=== PATIENT | female | born 1960 | race Caucasian/White ===

== ENCOUNTER 2025-07-15 11:57 | Inpatient (IN) ==
--- NOTE | 2025-07-15 12:59 | XRay Report ---
XR chest 1V portable CLINICAL HISTORY: Dyspnea. COMPARISON STUDY: No previous studies for comparison. FINDINGS: Lung volumes are normal. Lungs are clear. There is no pneumothorax or pleural effusion. Car diac size is normal. Mediastinal contours are normal. There is no evidence for pulmonary edema. IMPRESSION: No acute cardiopulmonary findings. ACT 112: Negative or not required by law. Electronically signed by: Toribio Noel M.D. 07/15/2025 12:58 PM
[2025-07-15 13:00] LABS: Hematocrit (blood only) 30.0 % (37.0-47.0); Hemoglobin 9.9 g/dL (12.0-16.0); Immature Granulocytes # (auto) 0.01 K/uL (0.01-0.20); Immature Granulocytes % (auto) 0.2 %; Mean Corpuscular Hemoglobin 29.5 pg (25.0-34.0); Mean Corpuscular Volume 89.3 fL (80.0-100.0); Platelet Count 267 K/uL (130-400); RDW Standard Deviation 44.2 fL (36.4-46.3); Red Blood Count 3.36 M/uL (4.20-5.40); White Blood Count 4.88 K/ul (4.8-10.8)
[2025-07-15 13:24] LABS: Alanine Aminotransferase 18 U/L (7-52); Albumin Globulin Ratio 1.7 (0.9-2); Albumin Level 3.9 gm/dl (3.4-5.0); Alkaline Phosphatase 45 U/L (34-104); Anion Gap 5 (3-11); Bilirubin,Total 0.3 mg/dl (0.2-1.0); Blood Urea Nitrogen 13 mg/dl (6-23); Calcium 8.8 mg/dl (8.6-10.3); Carbon Dioxide 27 mmol/L (21-32); Chloride 107 mmol/L (98-107); Creatinine Clr Calc Pharmacy 62.3 ml/min; Globulin 2.3 gm/dl (2.5-4.0); Glucose 97 mg/dl (70-99(Fasting)); Potassium 3.8 mmol/L (3.5-5.1); Sodium 139 mmol/L (136-145); Total Protein 6.2 gm/dl (6.0-8.3)
--- NOTE | 2025-07-15 13:25 | Electrocardiogram Report ---
Test Reason : Blood Pressure : */* mmHG Vent. Rate : 77 BPM Atrial Rate : 77 BPM P-R Int : 168 ms QRS Dur : 72 ms QT Int : 390 ms P-R-T Axes : 28 13 10 degrees QTcB Int : 441 ms Normal sinus rhythm Normal ECG Confirmed by Luis Aponte ([id number]) on 07/15/2025 1:24:58 PM Referred By: Confirmed By: Luis Aponte
[2025-07-15 13:59] LABS: Chlamydia pneumoniae PCR Not Detected (NotDetected); Coronavirus 229E PCR Not Detected (NotDetected); Coronavirus CoV-2 (COVID19)PCR Not Detected (NotDetected); Coronavirus HKU1 PCR Not Detected (NotDetected); Coronavirus NL63 PCR Not Detected (NotDetected); Coronavirus OC43PCR Not Detected (NotDetected); Human Metapneumovirus PCR Not Detected (NotDetected); Parainfluenza Virus 1 PCR Not Detected (NotDetected); Parainfluenza Virus 2 PCR Not Detected (NotDetected); Parainfluenza Virus 3 PCR Not Detected (NotDetected); Parainfluenza Virus 4 PCR Not Detected (NotDetected); Respiratory Syncytial VirusPCR Not Detected (NotDetected); Rhinovirus/Enterovirus PCR Not Detected (NotDetected)
[2025-07-15] MEDS ORDERED: PANTOPRAZOLE BOLUS/DRIP IV STA (14:52)
--- NOTE | 2025-07-15 14:53 | Gastrointestinal Consultation ---
Date of Consultation July 15, 2025 Assessment & Plan (1) Hx of gastric bypass: 65 year old female with history of HTN, osteoporosis, RYGB, anastomotic ulcer in 2020 in the setting of NSAIDs use admitted through the ED w/ symptomatic anemia, black stools in the setting of recent Excedrin use Trend H&H Monitor and document GI output Transfuse PRN per primary team IV PPI bolus and drip NPO after midnight Plan for EGD 07/16/25 We appreciate assistance in the management of any serological abnormality and corrections to include: hemoglobin >7, INR <2, platelets >50,000, potassium levels >3.5 but <5.3, and sodium levels within 5 points of the reference range prior to endoscopic evaluation. Thank you for allowing us to participate in the care of this patient. Please call with any acute changes, questions or concerns. Please see addendum below with additional recommendation from my supervising ph ysician. I spent a total of [] minutes on the date of service in review of patient's record, and previously obtained information in person and appropriate medical visit, discussion and education of plan, with patient and/or caregiver, placing orders for tests/referral/procedures as medically necessary and documentation of pertinent clinical information in patient's medical records for their visit today. Supervising Physician Co-Signing Physician Notes I saw and examined this patient with our nurse practitioner and agree with her assessment and plan. Patient presents with clinical picture of upper GI bleed. Differential diagnosis includes anastomotic ulcer, NSAID induced ulcer less likely neoplasm, esophagitis or vascular ectasias. Hemodynamically stable. Continue IV PPI drip. Will proceed with endoscopy in AM. History of Present Illness Reason for Consultation: anemia, black stool Requesting Physician: Dr. Doran Attending Physician: Dr. Doran History of Present Illness 65 year old female with history of HTN, osteoporosis, RYGB, anastomotic ulcer in 2020 in the setting of NSAIDs use admitted though the ED w/ anemia, black stools. GI was asked to evaluate. Suggests had been using some Excedrin for MSK discomfort for about a week. Shortly into this course, reports she developed some dark stools. No BRBPR. Has had some nausea but no vomiting. She grew concerned as she felt weak, dizzy and had SOB. HGB 13 --> 10.2 --> 9.9 BUN 13 EGD 2019: Normal esophagus. - Z-line regular, 33 cm from the incisors. - Gastric bypass with a small-sized pouch and intact staple line. Gastrojejunal anastomosis characterized by several clean based ulcerations. - Biopsies obtained from the gastric pouch to screen for H pylori. Allergies Allergy/AdvReac Type Severity Reaction Status Date / Time Sulfa (Sulfonamide Allergy Unknown . Verified 03/04/25 14:22 Antibiotics) Home Medications Medication Instructions Recorded Confirmed Type citalopram 20 mg tablet 30 mg PO DAILY #0 tabs 05/24/16 07/15/25 History lisinopril 5 mg tablet 5 mg PO DAILY #0 tabs 05/24/16 07/15/25 History fluticasone propionate 50 1 spray intranasal DAILY 07/15/25 07/15/25 History mcg/actuation nasal spray,suspension Patient History Medical History Depression Hypertension Surgical History History of gynecologic surgery Fertility Family History Grandmother Rheumatoid arthritis Social History Smoking Status: Never smoker Hx Alcohol Use: No Preferred Language: Algerian Feels Safe at Home: Yes Review of Systems Review of Systems: All other findings negative except as noted in HPI. Physical Exam Constitutional: WD/WN, vitals as above Respiratory: normal respiratory effort, lungs clear to auscultation Cardiovascular: Rate/Rhythm: regular rate Gastrointestinal (Abdomen): normal bowel sounds, soft, nontender, no hepatosplenomegaly Skin: no rashes, warm and dry Results & Data Vital Signs (Past 12 Hours) Vital Signs Temp Pulse Pulse Resp BP BP Pulse Ox 07/15/25 13:30 71 20 133/85 98 07/15/25 12:30 96 07/15/25 12:28 80 07/15/25 12:25 76 18 141/107 H 94 07/15/25 12:24 94 07/15/25 12:01 98.1 F 84 22 136/85 99 O2 Del Method 07/15/25 13:30 Room Air 07/15/25 12:30 Room Air 07/15/25 12:28 07/15/25 12:25 Room Air 07/15/25 12:24 Room Air 07/15/25 12:01 Room Air Laboratory Results 07/15/25 07/15/25 Range/Units 12:44 12:21 WBC 4.88 (4.8-10.8) K/ul RBC 3.36 L (4.20-5.40) M/uL Hgb 9.9 L (12.0-16.0) g/dL Hct 30.0 L (37.0-47.0) % MCV 89.3 (80.0-100.0) fL MCH 29.5 (25.0-34.0) pg MCHC 33.0 (32.0-36.0) g/dL RDW Std Deviation 44.2 (36.4-46.3) fL RDW Coeff of Anais 13.8 (11.5-14.5) % Plt Count 267 (130-400) K/uL MPV 10.4 (9.4-12.4) fL Immature Gran % (Auto) 0.2 % Neut % (Auto) 53.9 % Lymph % (Auto) 37.5 % [place] % (Auto) 6.6 % Eos % (Auto) 0.8 % Baso % (Auto) 1.0 % Neut # (Auto) 2.63 (1.40-6.50) K/uL Lymph # (Auto) 1.83 (1.20-3.40) K/uL [place] # (Auto) 0.32 (0.11-0.59) K/uL Eos # (Auto) 0.04 (0.00-0.50) K/uL Baso # (Auto) 0.05 (0.00-0.20) K/uL Immature Gran # (Auto) 0.01 (0.01-0.20) K/uL D-Dimer < 190 (0-500) ug/L FEU Sodium 139 (136-145) mmol/L Potassium 3.8 (3.5-5.1) mmol/L Chloride 107 (98-107) mmol/L Carbon Dioxide 27 (21-32) mmol/L Anion Gap 5 (3-11) BUN 13 (6-23) mg/dl Creatinine 0.85 (0.6-1.2) mg/dl Est Cr Clr Drug Dosing 62.3 ml/min eGFR 76.93 BUN/Creatinine Ratio 15.3 (10-20) Glucose 97 (70-99(Fasting)) mg/dl Calcium 8.8 (8.6-10.3) mg/dl Total Bilirubin 0.3 (0.2-1.0) mg/dl AST 18 (13-39) U/L ALT 18 (7-52) U/L Alkaline Phosphatase 45 (34-104) U/L Troponin I High Sens < 2.3 (0-14) pg/ml B-Natriuretic Peptide 33 (0-100) pg/ml Total Protein 6.2 (6.0-8.3) gm/dl Albumin 3.9 (3.4-5.0) gm/dl Globulin 2.3 L (2.5-4.0) gm/dl Albumin/Globulin Ratio 1.7 (0.9-2) Adenovirus (PCR) Not Detected (NotDetected) B. pertussis DNA (PCR) Not Detected (NotDetected) B.parapertussis DNA PCR Not Detected (NotDetected) C. pneumoniae DNA (PCR) Not Detected (NotDetected) Coronavirus OC43 (PCR) Not Detected (NotDetected) Coronavirus HKU1 (PCR) Not Detected (NotDetected) Coronavirus 229E (PCR) Not Detected (NotDetected) SARS-CoV-2 (PCR) Not Detected (NotDetected) Coronavirus NL63 (PCR) Not Detected (NotDetected) Human Metapneumovir PCR Not Detected (NotDetected) Influenza Type A (PCR) Not Detected (NotDetected) Influenza Type B (PCR) Not Detected (NotDetected) M. pneumoniae (PCR) Not Detected (NotDetected) Parainfluenza 1 (PCR) Not Detected (NotDetected) Parainfluenza 2 (PCR) Not Detected (NotDetected) Parainfluenza 3 (PCR) Not Detected (NotDetected) Parainfluenza 4 (PCR) Not Detected (NotDetected) RSV (PCR) Not Detected (NotDetected) Entero/Rhino (PCR) Not Detected (NotDetected) PG Care Time/CCT Total # of Minutes Spent Total Time Spent with Patient: Total time spent is greater than 50% in coordination of care (as documented) at patient's floor/unit and/or counseling patient: Coding Level of Care Code 75867 IN/OBS CONSULT LVL 4,60M Diagnoses Hx of gastric bypass Z98.84
--- NOTE | 2025-07-15 15:10 | History & Physical Report ---
Date of Service July 15, 2025 Assessment & Plan (1) Upper GI bleed: (2) Acute blood loss anemia: (3) Palpitations: (4) Chest pressure: (5) PVC (premature ventricular contraction): Plan Patient is a 65-year-old female with past medical history significant for arctic rhinitis, HTN, history of gastric bypass with gastrojejunal anastomosis ulcerations seen on prior EGD and osteoporosis who presented to the ED with c/o black stools and anemia in the setting of recent Excedrin use. Acute upper GI bleed Acute blood loss anemia Hgb previously WNL as of May 2022 Hgb 9.9 on admission H/o gastric bypass surgery several years ago EGD, 10/2019: normal esophagus, gastric bypass with a small sized pouch and intact staple line, gastrojejunal anastomosis characterized by several clean- based ulcerations EGD biopsy of the gastric pouch with no significant histopathologic features P/w black stools x 5 days; also w/ lightheadedness/dizziness and SANTANA which are likely 2/2 symptomatic anemia CXR negative Started on IV PPI bolus/drip in ED, continue GI saw pt in ED >> plan for EGG tomorrow Maintain NPO status, MIVF No indication to transfuse at this time but will follow repeat H/H Type/cross for 2U, blood consent obtained just in case Palpitations Chest pressure Symptomatic PVCs Also with c/o palpitations and centralized chest pressure x 5 days No reported specific chest pain in particular EKG in ED reveals NSR Electrolytes WNL, will check mag Tele in ED with frequent PVCs, likely experiencing symptomatic PVCs Will start Lopressor 12.5mg BID IVF initiated, will give some po K as well for goal K>4 Trop x 1 negative Check TTE Continue tele monitoring Repeat EKG in AM EKG with chest pain PRN Continue to monitor electrolytes and replete PRN Anxiety/depression Continue Celexa HTN Hold lisinopril for now given initiation of Lopressor BP on softer side DVT Prophylaxis: SCDs/TEDs only ISO above Code Status: FULL CODE PCP: Shawanda Shrestha MD Disposition: Admit to med/telemetry Patient seen in collaboration with Dr. Dominguez. Please see addendum. I spent a total of 64 minutes coordinating, documenting, and providing care for this patient excluding time spent in the performance of separately billed services or time spent by another provider/QHP. This included personally reviewing all current laboratories and imaging studies, medical reconciliation, outpatient chart review and discussion with specialists. This chart was completed in part utilizing Speech Voice Recognition Software. Grammatical errors, random word insertions, pronoun errors, and incomplete sentences are an occasional consequence of this system due to software limitations, ambient noise, and hardware issues. Any formal questions or concerns about the content, text, or information contained within the body of this dictation should be directly addressed to the provider for clarification. History of Present Illness Chief Complaint: Black stools, anemia Primary Care Provider: Shawanda Shrestha MD Patient is a 65-year-old female with past medical history significant for arctic rhinitis, HTN, history of gastric bypass and osteoporosis who presented to the ED with c/o black stools and anemia. History obtained from the patient, patient's significant other at bedside, discussion with ED provider and associated chart review. Patient seen with Dr. Dominguez in the ED. Reports dark black stools for the past 5 days. No reported hematochezia. Admits to taking Excedrin Migraine around for about 3 days due to MSK pain related to underlying osteoporosis. Has a history of gastric bypass with known ulcerations seen on prior EGD done in 2019. Reports history of bleeding ulcerations however denies any prior need for blood transfusions. Was on PPI therapy in the past but not as of recently. Has been also experiencing dyspnea on exertion, lightheadedness/dizziness, nausea, heart palpitations and centralized chest pressure. No reported falls or trauma. No known significant cardiac history. Denies any urinary habit changes. No reported diarrhea. Denies any abdominal pain. Was seen by PCP for these complaints on 07/13/25 and was ordered a PPI, CBC. CBC revealed anemia with Hgb of 10.2, Hgb previously WNL as of May 2022. Was subsequently referred to ED today by PCP due to concern for upper GI bleeding. FOBT positive in ED, Hgb 9.9; started on IV Protonix bolus/drip. GI saw and evaluated the patient in the ED, planning for EGD tomorrow AM. Allergies Allergy/AdvReac Type Severity Reaction Status Date / Time Sulfa (Sulfonamide Allergy Unknown . Verified 03/04/25 14:22 Antibiotics) Home Medications Medication Instructions Recorded Confirmed Type citalopram 20 mg tablet 30 mg PO DAILY #0 tabs 05/24/16 07/15/25 History lisinopril 5 mg tablet 5 mg PO DAILY #0 tabs 05/24/16 07/15/25 History fluticasone propionate 50 1 spray intranasal DAILY 07/15/25 07/15/25 History mcg/actuation nasal spray,suspension Past Med/Surg History Problem List Chest pressure Palpitations PVC (premature ventricular contraction) (Acute) Acute blood loss anemia Upper GI bleed (Acute) Vitamin D deficiency Vitamin B12 deficiency Hyperparathyroidism Osteoporosis Hx of gastric bypass Medical History Depression Hypertension Surgical History History of gynecologic surgery Fertility Family History Grandmother Rheumatoid arthritis Social History Smoking Status: Never smoker Hx Alcohol Use: No Preferred Language: Austrian Feels Safe at Home: Yes Review of Systems Review of Systems: At least ten systems reviewed and negative, except as noted in the HPI. Physical Exam 2 Physical Exam: Please refer to Dr. Dominguez's addendum for physical examination findings. Results & Data Results & Data Vital Signs (Past 12 Hours) Vital Signs Temp Pulse Pulse Resp BP BP Pulse Ox 07/15/25 13:30 71 20 133/85 98 07/15/25 12:30 96 07/15/25 12:28 80 07/15/25 12:25 76 18 141/107 H 94 07/15/25 12:24 94 07/15/25 12:01 36.7 C 84 22 136/85 99 O2 Del Method 07/15/25 13:30 Room Air 07/15/25 12:30 Room Air 07/15/25 12:28 07/15/25 12:25 Room Air 07/15/25 12:24 Room Air 07/15/25 12:01 Room Air Laboratory Results Short CBC 07/15/25 Range/Units 12:21 WBC 4.88 (4.8-10.8) K/ul Hgb 9.9 L (12.0-16.0) g/dL Hct 30.0 L (37.0-47.0) % Plt Count 267 (130-400) K/uL BMP 07/15/25 12:21 Sodium 139 Potassium 3.8 Chloride 107 Carbon Dioxide 27 BUN 13 Creatinine 0.85 Glucose 97 Calcium 8.8 Liver Function 07/15/25 Range/Units 12:21 Total Bilirubin 0.3 (0.2-1.0) mg/dl AST 18 (13-39) U/L ALT 18 (7-52) U/L Alkaline Phosphatase 45 (34-104) U/L Albumin 3.9 (3.4-5.0) gm/dl Diagnostic Findings Chest X-Ray 07/15/25 12:30 XR chest 1V portable CLINICAL HISTORY: Dyspnea. COMPARISON STUDY: No previous studies for comparison. FINDINGS: Lung volumes are normal. Lungs are clear. There is no pneumothorax or pleural effusion. Cardiac size is normal. Mediastinal contours are normal. There is no evidence for pulmonary edema. IMPRESSION: No acute cardiopulmonary findings. ACT 112: Negative or not required by law. Electronically signed by: Toribio Noel M.D. 07/15/2025 12:58 PM Supervising Physician Co-Signing Physician Notes Patient is a 65-year-old female with history of gastric bypass surgery, peptic ulcer disease, mood disorder, hypertension and other medical problems presents with history of melena, dizziness, dyspnea on exertion and palpitations since 5 days duration. Patient admits to using Excedrin for musculoskeletal pain during times coming for 3 days duration. Please review HPI for complete details of presentation. His fecal occult is positive in ED. PVCs noted on monitor. I personally reviewed blood work, EKG and imaging studies. D-dimer negative. Chest x-ray within normal limits. EKG showed no no signs of acute ischemia. Physical Exam: Vitals signs as noted above General Appearance:Moderately built and nourished, no apparent distress Head: normocephalic, Atraumatic Eyes: normal inspection, EOMI Neck: supple, Trachea midline Respiratory/Chest: Normal breath sounds, CTA, No accessory muscle use Cardiovascular: S1, S2, No murmur Abdomen/GI:Soft, Non tender, Bowel sounds present Extremities/Musculoskeletal:normal inspection, no edema Neurologic/Psych:AAOX3, grossly no focal neurological deficits Skin: normal color, warm Melena Acute blood loss anemia Symptomatic PVCs Continue IV Protonix Monitor H&H and transfuse as needed Gastroenterology on board Started on metoprolol for PVCs Check resting echo May need ZIO monitor as outpatient Monitor and replete electrolytes as needed Gentle IV fluids I personally interviewed and examined the patient at bedside. I have reviewed the advanced practitioner's documentation on the date of service referred in note and agree with plan. Patient's care is coordinated with Isabela Harris PA-C. Please refer to the documentation above for details of patient's presentation and for discussion of other issues. I spent a total [id number] coordinating, documenting, and providing care for this patient excluding time spent in the performance of separately billed services or time spent by another provider/QHP.
[2025-07-15] MEDS ORDERED: SODIUM CHLORIDE 0.9% 100 ML IV PRN (15:17)
--- NOTE | 2025-07-15 15:43 | Emergency Department Note ---
History of Present Illness General Chief complaint: Shortness of Breath/Dyspnea Stated complaint: IRREGULAR HEART BEAT CHEST PRESSURE SOB DIZZY Time Seen by Provider: 07/15/25 12:11 Source: patient Mode of arrival: ambulatory Limitations: no limitations History of Present Illness Patient is a 65-year-old female with history of peptic ulcer disease, vitamin D deficiency, vitamin B12 deficiency, hyperparathyroidism, prior gastric bypass who presents for shortness of breath, lightheadedness and palpitations. Symptoms have been present for several days. Palpitations were more frequent last night. Described as skipped heartbeats. No similar symptoms in the past. Denies any chest pain related to symptoms. No new medications. Denies alcohol or drug use. She also reports several days of dark stools. Not currently on any anticoagulation. No abdominal pain, nausea, vomiting. Home Medications Medication Instructions Recorded Confirmed Type citalopram 20 mg tablet 30 mg PO DAILY #0 tabs 05/24/16 03/04/25 History lisinopril 5 mg tablet 5 mg PO DAILY #0 tabs 05/24/16 03/04/25 History cholecalciferol (vitamin D3) 125 125 mcg PO DAILY 09/03/24 03/04/25 History mcg (5,000 unit) tablet syringe with needle 3 mL 23 x 1" #50 ea 09/03/24 12/07/24 Rx (BD Eclipse Luer-Kady) mecobalamin (vitamin B12) 5,000 5,000 mcg PO DAILY 12/07/24 12/24/24 History mcg disintegrating tablet melatonin 5 mg capsule 5 mg PO HS PRN as directed 12/07/24 03/04/25 History fluticasone propionate 50 1 spray intranasal UD 07/15/25 History mcg/actuation nasal spray,suspension omeprazole 40 mg capsule,delayed 40 mg PO DAILY 07/15/25 History release Allergies Allergy/AdvReac Type Severity Reaction Status Date / Time Sulfa (Sulfonamide Allergy Unknown . Verified 03/04/25 14:22 Antibiotics) Past Med/Surg History Problem List PVC (premature ventricular contraction) (Acute) Acute blood loss anemia Upper GI bleed (Acute) Vitamin D deficiency Vitamin B12 deficiency Hyperparathyroidism Osteoporosis Hx of gastric bypass Medical History Depression Hypertension Surgical History History of gynecologic surgery Fertility Family History Grandmother Rheumatoid arthritis Social History Smoking Status: Never smoker Hx Alcohol Use: No Preferred Language: Ukrainian Feels Safe at Home: Yes Review of Systems Review of systems negative outside of positive findings mentioned in HPI. Physical Exam Vital Signs Vital Signs - 24 hr 07/15/25 12:01 07/15/25 12:24 07/15/25 12:24 Temperature 36.7 C Temperature Source Temporal Artery Scan Pulse Rate 84 Pulse Rate [Apical] Respiratory Rate 22 Respiratory Effort / Characteristics Non-Labored Respiratory Depth Normal Normal Respiratory Pattern Regular Blood Pressure 136/85 Blood Pressure [Left Arm] Blood Pressure Mean 102 Blood Pressure Mean [Left Arm] Pulse Oximetry 99 94 Oxygen Delivery Method Room Air Room Air Sepsis Recent Fever Within 48 Hours No Sepsis New/Unexplained Change in Mental Status No Sepsis Action Taken by Nursing No Action Required 07/15/25 12:25 07/15/25 12:28 07/15/25 12:30 Temperature Temperature Source Pulse Rate 80 Pulse Rate [Apical] 76 Respiratory Rate 18 Respiratory Effort / Characteristics Non-Labored Spontaneous Respiratory Depth Normal Respiratory Pattern Blood Pressure Blood Pressure [Left Arm] 141/107 H Blood Pressure Mean Blood Pressure Mean [Left Arm] 118 Pulse Oximetry 94 96 Oxygen Delivery Method Room Air Room Air Sepsis Recent Fever Within 48 Hours Sepsis New/Unexplained Change in Mental Status Sepsis Action Taken by Nursing 07/15/25 13:30 Temperature Temperature Source Pulse Rate Pulse Rate [Apical] 71 Respiratory Rate 20 Respiratory Effort / Characteristics Non-Labored Spontaneous Respiratory Depth Normal Respiratory Pattern Regular Blood Pressure Blood Pressure [Left Arm] 133/85 Blood Pressure Mean Blood Pressure Mean [Left Arm] 101 Pulse Oximetry 98 Oxygen Delivery Method Room Air Sepsis Recent Fever Within 48 Hours Sepsis New/Unexplained Change in Mental Status Sepsis Action Taken by Nursing See below Constitutional WD/WN, vitals as above Eyes PERRL, conjunctivae normal, anicteric sclerae Respiratory normal respiratory effort, lungs clear to auscultation Cardiovascular RRR, no murmur, no edema Intermittent PVCs noted Gastrointestinal (Abdomen) normal bowel sounds, soft, nontender, no hepatosplenomegaly Rectal Exam: + heme positive stool Medical Decision Making Differential Diagnosis DDx includes but not limited to: Cardiac arrhythmia, structural heart disease, anemia, hypovolemia and dehydration, hyperthyroidism, anxiety, and stimulant reaction, PE, GERD Medical Records Attestation: I reviewed the patient's medical records. Home Medications Current Medication List: was personally reviewed by me Laboratory Data Attestation: I reviewed the patient's lab results. 07/15/25 12:21 07/15/25 12:21 Lab Results 07/15/25 07/15/25 Range/Units 12:21 12:44 WBC 4.88 (4.8-10.8) K/ul RBC 3.36 L (4.20-5.40) M/uL Hgb 9.9 L (12.0-16.0) g/dL Hct 30.0 L (37.0-47.0) % MCV 89.3 (80.0-100.0) fL MCH 29.5 (25.0-34.0) pg MCHC 33.0 (32.0-36.0) g/dL RDW Std Deviation 44.2 (36.4-46.3) fL RDW Coeff of Anais 13.8 (11.5-14.5) % Plt Count 267 (130-400) K/uL MPV 10.4 (9.4-12.4) fL Immature Gran % (Auto) 0.2 % Neut % (Auto) 53.9 % Lymph % (Auto) 37.5 % [place] % (Auto) 6.6 % Eos % (Auto) 0.8 % Baso % (Auto) 1.0 % Neut # (Auto) 2.63 (1.40-6.50) K/uL Lymph # (Auto) 1.83 (1.20-3.40) K/uL [place] # (Auto) 0.32 (0.11-0.59) K/uL Eos # (Auto) 0.04 (0.00-0.50) K/uL Baso # (Auto) 0.05 (0.00-0.20) K/uL Immature Gran # (Auto) 0.01 (0.01-0.20) K/uL D-Dimer < 190 (0-500) ug/L FEU Sodium 139 (136-145) mmol/L Potassium 3.8 (3.5-5.1) mmol/L Chloride 107 (98-107) mmol/L Carbon Dioxide 27 (21-32) mmol/L Anion Gap 5 (3-11) BUN 13 (6-23) mg/dl Creatinine 0.85 (0.6-1.2) mg/dl Est Cr Clr Drug Dosing 62.3 ml/min eGFR 76.93 BUN/Creatinine Ratio 15.3 (10-20) Glucose 97 (70-99(Fasting)) mg/dl Calcium 8.8 (8.6-10.3) mg/dl Total Bilirubin 0.3 (0.2-1.0) mg/dl AST 18 (13-39) U/L ALT 18 (7-52) U/L Alkaline Phosphatase 45 (34-104) U/L Troponin I High Sens < 2.3 (0-14) pg/ml B-Natriuretic Peptide 33 (0-100) pg/ml Total Protein 6.2 (6.0-8.3) gm/dl Albumin 3.9 (3.4-5.0) gm/dl Globulin 2.3 L (2.5-4.0) gm/dl Albumin/Globulin Ratio 1.7 (0.9-2) Adenovirus (PCR) Not Detected (NotDetected) B. pertussis DNA (PCR) Not Detected (NotDetected) B.parapertussis DNA PCR Not Detected (NotDetected) C. pneumoniae DNA (PCR) Not Detected (NotDetected) Coronavirus OC43 (PCR) Not Detected (NotDetected) Coronavirus HKU1 (PCR) Not Detected (NotDetected) Coronavirus 229E (PCR) Not Detected (NotDetected) SARS-CoV-2 (PCR) Not Detected (NotDetected) Coronavirus NL63 (PCR) Not Detected (NotDetected) Human Metapneumovir PCR Not Detected (NotDetected) Influenza Type A (PCR) Not Detected (NotDetected) Influenza Type B (PCR) Not Detected (NotDetected) M. pneumoniae (PCR) Not Detected (NotDetected) Parainfluenza 1 (PCR) Not Detected (NotDetected) Parainfluenza 2 (PCR) Not Detected (NotDetected) Parainfluenza 3 (PCR) Not Detected (NotDetected) Parainfluenza 4 (PCR) Not Detected (NotDetected) RSV (PCR) Not Detected (NotDetected) Entero/Rhino (PCR) Not Detected (NotDetected) Imaging Data Radiologist's Impression: Chest X-Ray 07/15/25 12:30 XR chest 1V portable CLINICAL HISTORY: Dyspnea. COMPARISON STUDY: No previous studies for comparison. FINDINGS: Lung volumes are normal. Lungs are clear. There is no pneumothorax or pleural effusion. Cardiac size is normal. Mediastinal contours are normal. There is no evidence for pulmonary edema. IMPRESSION: No acute cardiopulmonary findings. ACT 112: Negative or not required by law. Electronically signed by: Toribio Noel M.D. 07/15/2025 12:58 PM ECG Data Attestation: I personally reviewed and interpreted this ECG as follows: Indication: + SOB/dyspnea Rate (beats per minute): 77 Rhythm: + normal sinus ECG Intervals/blocks: + Normal QRS, + Normal QT and + Normal NC ECG [place]: + Normal ECG ST segments: + Normal ST segments Comparison ECG Date: no prior available MDM Narrative Patient is a 65-year-old female presents with shortness of breath, dizziness and palpitations. Hemodynamically stable. EKG nonconcerning for any cardiac arrhythmia or ischemia. I did note PVCs on her conveyor monitor consistent with her palpitation symptoms. Hemoglobin noted to be 9.9. Her baseline is 12.4. She also notes dark stools recently and was Hemoccult positive here today. Not on any anticoagulation. abdominal exam is benign. Discussed findings with GI INTERNATIONAL FLIGHT ATTENDANT who recommends admission, Protonix bolus and drip, n.p.o. after midnight for EGD. Patient is comfortable with this plan and will admit for further workup. Remaining lab work nonconcerning. Stable for admission to hospitalist service. Impression & Plan Upper GI bleed, PVC (premature ventricular contraction) Discharge Plan Visit Data Chief Complaint: Shortness of Breath/Dyspnea Stated Complaint: IRREGULAR HEART BEAT CHEST PRESSURE SOB DIZZY ED Provider: Marcial Doran Discharge Problem: Upper GI bleed, PVC (premature ventricular contraction) Patient Disposition: Admitted As Inpatient Condition: Good Prescriptions Prescriptions: No Action citalopram 20 mg Tablet 30 mg PO DAILY Qty: 0 lisinopril 5 mg Tablet 5 mg PO DAILY Qty: 0 melatonin 5 mg capsule 5 mg PO HS PRN (Reason: as directed) mecobalamin (vitamin B12) 5,000 mcg tablet,disintegrating 5,000 mcg PO DAILY cholecalciferol (vitamin D3) 125 mcg (5,000 unit) tablet 125 mcg PO DAILY (DME) BD Eclipse Luer-Kady 3 mL 23 x 1" syringe See Rx Instructions miscellaneous .MEDSUPPLY Qty: 50 0RF Rx Instructions: Inject vitamin b12 1x monthly omeprazole 40 mg capsule,delayed release(DR/EC) 40 mg PO DAILY fluticasone propionate 50 mcg/actuation spray,suspension 1 spray INTRANASAL UD
[2025-07-15] MEDS: PANTOprazole 40 MG in DEXTROSE 5% MINI-B 100 ML IV SCH (16:03)
[2025-07-15 16:05] LABS: Magnesium 2.2 mg/dl (1.7-2.4)
[2025-07-15] MEDS: POTASSIUM CHLORIDE / WTR 10 MEQ/100 ML PLCT IV SCH (16:31)
[2025-07-15] MEDS: SODIUM CHLOR 0.45% + 20MEQ KCL 20 MEQ/1,000 ML BAG IV SCH (16:53)
[2025-07-15] MEDS: METOPROLOL TARTRATE 25 MG TAB PO STA (17:29)
[2025-07-15] MEDS: D5W AND 1/2NSS + 20MEQ KCL 20 MEQ/1,000 ML BAG IV SCH (19:11)
[2025-07-15] MEDS ORDERED: POLYETHYLENE (MIRALAX) 17 GM PACK PO PRN (21:03)
[2025-07-15] MEDS ORDERED: ONDANSETRON INJ 2 MG/ML 2 ML VIAL IV PRN (21:03)
[2025-07-15] MEDS ORDERED: MAGNESIUM HYDROXIDE SUSP 30 ML UDC PO PRN (21:03)
[2025-07-15] MEDS: METOPROLOL TARTRATE 25 MG TAB PO SCH (21:07)
[2025-07-15 23:15] LABS: Hematocrit (blood only) 30.0 % (37.0-47.0); Hemoglobin 9.9 g/dL (12.0-16.0)
[2025-07-16 07:19] LABS: Hematocrit (blood only) 31.1 % (37.0-47.0); Hemoglobin 10.4 g/dL (12.0-16.0); Mean Corpuscular Hemoglobin 30.1 pg (25.0-34.0); Mean Corpuscular Volume 89.9 fL (80.0-100.0); Platelet Count 287 K/uL (130-400); RDW Standard Deviation 45.1 fL (36.4-46.3); Red Blood Count 3.46 M/uL (4.20-5.40); White Blood Count 5.74 K/ul (4.8-10.8)
[2025-07-16 07:34] LABS: Anion Gap 6.0 (3-11); Blood Urea Nitrogen 8.0 mg/dl (6-23); Carbon Dioxide 25.0 mmol/L (21-32); Chloride 110.0 mmol/L (98-107); Potassium 4.1 mmol/L (3.5-5.1); Sodium 141.0 mmol/L (136-145)
[2025-07-16 07:35] LABS: Creatinine Clr Calc Pharmacy 67.0 ml/min; Glucose 106.0 mg/dl (70-99(Fasting)); Magnesium 2.2 mg/dl (1.7-2.4)
[2025-07-16] MEDS: FLUTICASONE PROPIONATE NA SPR 16 GM BTL SCH (08:17)
[2025-07-16] MEDS: ACETAMINOPHEN 325 MG TAB PO PRN (08:18)
[2025-07-16 08:24] LABS: Calcium 8.6 mg/dl (8.6-10.3)
--- NOTE | 2025-07-16 09:14 | Gastroenterology Progress Note ---
Date of Service July 16, 2025 Assessment & Plan (1) Hx of gastric bypass: Plan: 65 year old female with history of HTN, osteoporosis, RYGB, anastomotic ulcer in 2020 in the setting of NSAIDs use admitted through the ED w/ symptomatic anemia, black stools in the setting of recent Excedrin use Maintain NPO status for EGD evaluation today Trend H&H Monitor and document GI output Transfuse PRN per primary team IV PPI bolus and drip We appreciate assistance in the management of any serological abnormality and corrections to include: hemoglobin >7, INR <2, platelets >50,000, potassium levels >3.5 but <5.3, and sodium levels within 5 points of the reference range prior to endoscopic evaluation. Thank you for allowing us to participate in the care of this patient. Please call with any acute changes, questions or concerns. Please see addendum below with additional recommendation from my supervising physician. Admission and Anticipated Discharge Date Admission Date: July 15, 2025 Supervising Physician Co-Signing Physician Notes I saw and examined this patient with our nurse practitioner and agree with her assessment and plan. Clinically stable hemodynamically. 1 episode of melena last night. Will proceed with endoscopy today. Subjective Remains NPO for EGD evaluation. Had one episode of melena overnight. Some abd discomfort. Reports a HARMAN this AM. No fever, chils, CP, SOB. Review of Systems Review of Systems: All other findings negative except as noted in HPI. Physical Exam Constitutional: WD/WN, vitals as above Respiratory: normal respiratory effort, lungs clear to auscultation Cardiovascular: Rate/Rhythm: regular rate and regular rhythm Gastrointestinal (Abdomen): normal bowel sounds, soft, nontender, no hepatosplenomegaly Skin: no rashes, warm and dry Results & Data Results & Data Vital Signs (Past 12 Hours) Vital Signs Temp Pulse Pulse Pulse Resp BP BP 07/16/25 07:23 69 07/16/25 02:55 98.2 F 62 16 139/83 07/16/25 00:27 80 07/15/25 22:11 98.2 F 77 16 147/86 H 07/15/25 21:41 75 20 138/93 Pulse Ox O2 Del Method 07/16/25 07:23 07/16/25 02:55 97 Room Air 07/16/25 00:27 07/15/25 22:11 97 Room Air 07/15/25 21:41 98 Room Air Laboratory Results 07/16/25 07/15/25 07/15/25 Range/Units 06:45 22:38 17:24 WBC 5.74 (4.8-10.8) K/ul RBC 3.46 L (4.20-5.40) M/uL Hgb 10.4 L 9.9 L (12.0-16.0) g/dL Hct 31.1 L 30.0 L (37.0-47.0) % MCV 89.9 (80.0-100.0) fL MCH 30.1 (25.0-34.0) pg MCHC 33.4 (32.0-36.0) g/dL RDW Std Deviation 45.1 (36.4-46.3) fL RDW Coeff of Anais 13.9 (11.5-14.5) % Plt Count 287 (130-400) K/uL MPV 10.3 (9.4-12.4) fL Immature Gran % (Auto) % Neut % (Auto) % Lymph % (Auto) % Major % (Auto) % Eos % (Auto) % Baso % (Auto) % Neut # (Auto) (1.40-6.50) K/uL Lymph # (Auto) (1.20-3.40) K/uL Major # (Auto) (0.11-0.59) K/uL Eos # (Auto) (0.00-0.50) K/uL Baso # (Auto) (0.00-0.20) K/uL Immature Gran # (Auto) (0.01-0.20) K/uL D-Dimer (0-500) ug/L FEU Sodium 141 (136-145) mmol/L Potassium 4.1 (3.5-5.1) mmol/L Chloride 110 H (98-107) mmol/L Carbon Dioxide 25 (21-32) mmol/L Anion Gap 6 (3-11) BUN 8 (6-23) mg/dl Creatinine 0.77 (0.6-1.2) mg/dl Est Cr Clr Drug Dosing 67.0 ml/min eGFR 86.62 BUN/Creatinine Ratio 10.4 (10-20) Glucose 106 H (70-99(Fasting)) mg/dl Calcium 8.6 (8.6-10.3) mg/dl Magnesium 2.2 (1.7-2.4) mg/dl Total Bilirubin (0.2-1.0) mg/dl AST (13-39) U/L ALT (7-52) U/L Alkaline Phosphatase (34-104) U/L Troponin I High Sens < 2.3 (0-14) pg/ml B-Natriuretic Peptide (0-100) pg/ml Total Protein (6.0-8.3) gm/dl Albumin (3.4-5.0) gm/dl Globulin (2.5-4.0) gm/dl Albumin/Globulin Ratio (0.9-2) Adenovirus (PCR) (NotDetected) B. pertussis DNA (PCR) (NotDetected) B.parapertussis DNA PCR (NotDetected) C. pneumoniae DNA (PCR) (NotDetected) Coronavirus OC43 (PCR) (NotDetected) Coronavirus HKU1 (PCR) (NotDetected) Coronavirus 229E (PCR) (NotDetected) SARS-CoV-2 (PCR) (NotDetected) Coronavirus NL63 (PCR) (NotDetected) Human Metapneumovir PCR (NotDetected) Influenza Type A (PCR) (NotDetected) Influenza Type B (PCR) (NotDetected) M. pneumoniae (PCR) (NotDetected) Parainfluenza 1 (PCR) (NotDetected) Parainfluenza 2 (PCR) (NotDetected) Parainfluenza 3 (PCR) (NotDetected) Parainfluenza 4 (PCR) (NotDetected) RSV (PCR) (NotDetected) Entero/Rhino (PCR) (NotDetected) Blood Type Blood Type Recheck A Positive Antibody Screen Crossmatch 07/15/25 07/15/25 07/15/25 Range/Units 15:41 12:44 12:21 WBC 4.88 (4.8-10.8) K/ul RBC 3.36 L (4.20-5.40) M/uL Hgb 9.9 L (12.0-16.0) g/dL Hct 30.0 L (37.0-47.0) % MCV 89.3 (80.0-100.0) fL MCH 29.5 (25.0-34.0) pg MCHC 33.0 (32.0-36.0) g/dL RDW Std Deviation 44.2 (36.4-46.3) fL RDW Coeff of Anais 13.8 (11.5-14.5) % Plt Count 267 (130-400) K/uL MPV 10.4 (9.4-12.4) fL Immature Gran % (Auto) 0.2 % Neut % (Auto) 53.9 % Lymph % (Auto) 37.5 % Major % (Auto) 6.6 % Eos % (Auto) 0.8 % Baso % (Auto) 1.0 % Neut # (Auto) 2.63 (1.40-6.50) K/uL Lymph # (Auto) 1.83 (1.20-3.40) K/uL Major # (Auto) 0.32 (0.11-0.59) K/uL Eos # (Auto) 0.04 (0.00-0.50) K/uL Baso # (Auto) 0.05 (0.00-0.20) K/uL Immature Gran # (Auto) 0.01 (0.01-0.20) K/uL D-Dimer < 190 (0-500) ug/L FEU Sodium 139 (136-145) mmol/L Potassium 3.8 (3.5-5.1) mmol/L Chloride 107 (98-107) mmol/L Carbon Dioxide 27 (21-32) mmol/L Anion Gap 5 (3-11) BUN 13 (6-23) mg/dl Creatinine 0.85 (0.6-1.2) mg/dl Est Cr Clr Drug Dosing 62.3 ml/min eGFR 76.93 BUN/Creatinine Ratio 15.3 (10-20) Glucose 97 (70-99(Fasting)) mg/dl Calcium 8.8 (8.6-10.3) mg/dl Magnesium 2.2 (1.7-2.4) mg/dl Total Bilirubin 0.3 (0.2-1.0) mg/dl AST 18 (13-39) U/L ALT 18 (7-52) U/L Alkaline Phosphatase 45 (34-104) U/L Troponin I High Sens < 2.3 (0-14) pg/ml B-Natriuretic Peptide 33 (0-100) pg/ml Total Protein 6.2 (6.0-8.3) gm/dl Albumin 3.9 (3.4-5.0) gm/dl Globulin 2.3 L (2.5-4.0) gm/dl Albumin/Globulin Ratio 1.7 (0.9-2) Adenovirus (PCR) Not Detected (NotDetected) B. pertussis DNA (PCR) Not Detected (NotDetected) B.parapertussis DNA PCR Not Detected (NotDetected) C. pneumoniae DNA (PCR) Not Detected (NotDetected) Coronavirus OC43 (PCR) Not Detected (NotDetected) Coronavirus HKU1 (PCR) Not Detected (NotDetected) Coronavirus 229E (PCR) Not Detected (NotDetected) SARS-CoV-2 (PCR) Not Detected (NotDetected) Coronavirus NL63 (PCR) Not Detected (NotDetected) Human Metapneumovir PCR Not Detected (NotDetected) Influenza Type A (PCR) Not Detected (NotDetected) Influenza Type B (PCR) Not Detected (NotDetected) M. pneumoniae (PCR) Not Detected (NotDetected) Parainfluenza 1 (PCR) Not Detected (NotDetected) Parainfluenza 2 (PCR) Not Detected (NotDetected) Parainfluenza 3 (PCR) Not Detected (NotDetected) Parainfluenza 4 (PCR) Not Detected (NotDetected) RSV (PCR) Not Detected (NotDetected) Entero/Rhino (PCR) Not Detected (NotDetected) Blood Type A Positive Blood Type Recheck Antibody Screen NEGATIVE Crossmatch See Detail PG Care Time/CCT Total # of Minutes Spent Total Time Spent with Patient: Total time spent is greater than 50% in coordination of care (as documented) at patient's floor/unit and/or counseling patient: Coding Level of Care Code None Diagnoses Hx of gastric bypass Z98.84
[2025-07-16] MEDS: CITALOPRAM 20 MG TAB PO SCH (09:31)
--- NOTE | 2025-07-16 09:47 | XCELERA ---
[id number] [id number]
--- NOTE | 2025-07-16 09:54 | Electrocardiogram Report ---
Test Reason : Blood Pressure : */* mmHG Vent. Rate : 79 BPM Atrial Rate : 79 BPM P-R Int : 166 ms QRS Dur : 72 ms QT Int : 368 ms P-R-T Axes : 34 35 29 degrees QTcB Int : 421 ms Poor data quality, interpretation may be adversely affected Normal sinus rhythm Normal ECG When compared with ECG of 15-Jul-2025 12:10, No significant change was found Confirmed by Luis Aponte [id number]) on 07/16/2025 9:54:14 AM Referred By: REFERRED SELF Confirmed By: Luis Aponte
--- NOTE | 2025-07-16 10:20 | Anesthesiology Consultation ---
Date of Service July 16, 2025 Assessment & Plan Chart Review Chart Review: Acceptable Risk for Surgery and Patient NOT seen in Pre Admission Testing Consults Requested none ASA ASA3 Proposed Anesthesia Anesthesia Type: MAC History Surgery Operation Date: 07/16/25 16:45 Proposed Procedures p Esophagogastroduodenoscopy Dr. Maxi German MD Height/Weight Height: 5 ft 2 in Weight: 66.8 kg Allergies Allergy/AdvReac Type Severity Reaction Status Date / Time Sulfa (Sulfonamide Allergy Unknown . Verified 07/16/25 09:08 Antibiotics) Medications Home Medications Medication Instructions Recorded Confirmed Last Taken citalopram 20 mg tablet 30 mg PO DAILY #0 tabs 05/24/16 07/15/25 Unknown lisinopril 5 mg tablet 5 mg PO DAILY #0 tabs 05/24/16 07/15/25 Unknown fluticasone propionate 50 1 spray intranasal DAILY 07/15/25 07/15/25 Unknown mcg/actuation nasal spray,suspension Active Medications Generic Name Dose Route Start Last Admin Trade Name Freq PRN Reason Stop Dose Admin Acetaminophen 650 mg 07/15/25 21:03 07/16/25 08:18 Acetaminophen 325 Mg Tab PO 08/14/25 21:02 650 mg Q4H PRN Administration Pain or Fever Citalopram Hydrobromide 30 mg 07/16/25 09:00 07/16/25 09:31 Citalopram 20 Mg Tab PO 08/15/25 08:59 Not Given DAILY GURINDER Fluticasone Propionate 1 sprays 07/16/25 09:00 07/16/25 08:17 Fluticasone Propionate Na Spr 16 Gm Btl NA 08/15/25 08:59 1 sprays DAILY GURINDER Administration Pantoprazole Sodium 40 mg/ 100 mls @ 20 mls/hr 07/15/25 15:15 07/16/25 08:17 Dextrose IV 08/14/25 15:14 8 mg/hr Q5H GURINDER 20 mls/hr Administration 8 MG/HR Potassium Chloride/Dextrose/Sod Cl 20 meq in 1,000 mls @ 75 mls/hr 07/15/25 16:15 07/16/25 09:21 D5w And 1/2nss + 20meq Kcl IV 07/18/25 16:14 75 mls/hr .[id number] GURINDER Administration Metoprolol Tartrate 12.5 mg 07/15/25 21:00 07/16/25 08:18 Metoprolol Tartrate 25 Mg Tab PO 08/14/25 20:59 12.5 mg BID GURINDER Administration NPO Last Intake of Fluids Comment: meds with a sip of water this am Past Medical History Medical History Depression Hypertension acute blood loss anemia Hx/o gastric ulcers osteoporosis s/p gastric bypass UGI bleed hyperparathyroidism Exercise / Class Metabolic Activity II 4-5 Yardwork/Stairs/Walk up hill Past Family History Family History Grandmother Rheumatoid arthritis Past Surgical History Surgical History History of gynecologic surgery Fertility gastric bypass EGD Past Anesthesia History No Hx of Anesthesia Complications and No Family Hx of Anesthesia Complications History of PONV No Hx of PONV and No Hx of Motion Sickness Social History Smoking Status: Never smoker Hx Alcohol Use: No Hx Substance Use: No Physical Exam Vital Signs Last Vital Signs Temp 36.8 C 07/16/25 02:55 Pulse 69 07/16/25 07:23 Resp 16 07/16/25 02:55 BP 139/83 07/16/25 02:55 Pulse Ox 97 07/16/25 02:55 O2 Del Method Room Air 07/16/25 02:55 Testing Laboratory Results 07/16/25 06:45 07/16/25 06:45 Blood Type A Positive 07/15/25 15:41 Antibody Screen NEGATIVE 07/15/25 15:41 Electrocardiogram Date: 07/16/25 Findings: + NSR @ (@ 79) Chest X-Ray Date: 07/15/25 Findings: + NAD Echocardiogram Date: 07/16/25 EF: 60% LV Function: normal RWMA: + none Valvular Disease: + no significant valvular disease TR-mild small loculated pericardial effusion
[2025-07-16] MEDS ORDERED: ATROPINE SULFATE 0.1 MG/ML 10ML SYR IV PRN (14:32)
--- NOTE | 2025-07-16 14:51 | Anesthesiology Progress Note ---
Date of Service July 16, 2025 Anesthesia Post Procedure Vital Signs Vital Signs: Temp Pulse Pulse Pulse Resp BP BP 07/16/25 14:44 78 07/16/25 14:26 36.8 C 84 16 134/87 07/16/25 10:32 36.6 C 73 16 134/81 07/16/25 07:23 69 07/16/25 02:55 36.8 C 62 16 139/83 07/16/25 00:27 80 07/15/25 22:11 36.8 C 77 16 147/86 H 07/15/25 21:41 75 20 138/93 07/15/25 20:22 81 07/15/25 20:00 49 L 19 104/72 07/15/25 18:00 77 17 158/92 H 07/15/25 16:24 78 07/15/25 16:00 78 23 158/94 H Pulse Ox O2 Del Method 07/16/25 14:44 07/16/25 14:26 99 Room Air 07/16/25 10:32 97 Room Air 07/16/25 07:23 07/16/25 02:55 97 Room Air 07/16/25 00:27 07/15/25 22:11 97 Room Air 07/15/25 21:41 98 Room Air 07/15/25 20:22 07/15/25 20:00 100 Room Air 07/15/25 18:00 100 Room Air 07/15/25 16:24 07/15/25 16:00 99 Transfer of Care Handoff Completed per policy Notes Mental Status: alert / awake / arousable Patient Amnestic to Procedure: Yes Nausea / Vomiting: adequately controlled Pain: adequately controlled Airway Patency, RR, SpO2: stable & adequate BP & HR: stable & adequate Hydration State: stable & adequate Anesthetic Complications: no major complications apparent
--- NOTE | 2025-07-16 14:55 | GI REPORT ---
[facility] Patient: TOO TAYLOR : 1960 Sex at : Female Age: 65 Years Procedure: Upper GI endoscopy Date: 07/16/2025 Attending Physician: Amandeep German MD Referring MD: Raúl Shepard DO Indications: - Suspected upper gastrointestinal bleeding Medications: - Monitored Anesthesia Care Complications: - No immediate complications. Estimated Blood Loss: - Estimated blood loss: None. Procedure: - Prior to the procedure, a History and Physical was performed, and patient medications and allergies were reviewed. The patient's tolerance of previous anesthesia was also reviewed. The risks and benefits of the procedure and the sedation options and risks were discussed with the patient. All questions were answered, and informed consent was obtained. [Anticoagulant Agents] [Days Prior to Procedure]. [ASA Grade]. After reviewing the risks and benefits, the patient was deemed in satisfactory condition to undergo the procedure. - The egd scope was introduced through the mouth and advanced to the proximal jejunum. - The upper GI endoscopy was accomplished without difficulty. - The patient tolerated the procedure well. Findings: - The examined esophagus was normal. - Evidence of a gastric bypass and gastrojejunostomy were found in the gastric body. This was characterized by healthy appearing mucosa. - The examined jejunum was normal. Impression: - Normal esophagus. - A gastric bypass and gastrojejunostomy was found, characterized by healthy appearing mucosa. - Normal examined jejunum. - No specimens collected. Recommendation: - Resume previous diet. - Patient has a contact number available for emergencies. The signs and symptoms of potential delayed complications were discussed with the patient. Return to normal activities tomorrow. Written discharge instructions were provided to the patient. Procedure Code(s): - 22832, Esophagogastroduodenoscopy, flexible, transoral; diagnostic, including collection of specimen(s) by brushing or washing, when performed (separate procedure) Diagnosis Code(s): - Z98.84, Bariatric surgery status - Z98.0, Intestinal bypass and anastomosis status CPT(R) - 202 copyright [employer]. All Rights Reserved. The CPT codes, CCI edits and ICD codes generated are intended as suggestions and were generated based on input data. These codes are preliminary and upon medical biller coder review may be revised to meet current compliance and payer requirements. The provider is responsible for the final determination of appropriate codes, and modifiers. Amandeep German MD This document has been electronically signed. Note Initiated:07/16/2025 Note Completed:07/16/2025 2:54 PM \\[email or web address]\Provation\Results\[email or web address]\[id number]
[2025-07-16] MEDS: MIDAZOLAM HCL 1 MG/ML 2ML VIAL ONE (15:37)
[2025-07-16] MEDS: PROPOFOL IV EMULSION 10 MG/ML 20 ML VIAL IV ONE (15:55)
[2025-07-16] MEDS: ONDANSETRON INJ 2 MG/ML 2 ML VIAL ONE (15:55)
[2025-07-16] MEDS: LIDOCAINE 2% 2 ML VIAL/AMP(20MG/ML) INFIL ONE (15:55)
--- NOTE | 2025-07-16 16:16 | Discharge Summary ---
Discharge Summary Date of Service July 16, 2025 Principal Dx & Hospital Course #1 = Principal Diagnosis (1) Acute on chronic blood loss anemia: (2) Symptomatic PVCs: (3) Hypertension: (4) Hx of gastric bypass: Plan Patient 65-year-old female presented to the emergency room with complaints of black stool and anemia. In the emergency room hemoglobin was in the upper 9. Patient was admitted to the hospital. She is placed n.p.o. Electrolytes were replaced. Patient was also complaining of some palpitations. EKG showed sinus rhythm with PVCs. Patient was evaluated by gastroenterology. She does have a history of gastric bypass with a history of previous anastomotic ulcer. She underwent EGD. EGD showed normal mucosa and no signs of or source of bleeding. Hemoglobin actually improved while in the hospital without any intervention. Patient also had an echocardiogram performed. Showed normal ejection fraction. Small pericardial effusion but no evidence of tamponade. Her lisinopril was discontinued and she was started on metoprolol for her symptomatic PVCs. She tolerated this well. Post EGD her diet was advanced. She will be able to be discharged home to follow-up with the PCP with recommendations for outpatient colonoscopy Notes For Next Care Provider Medication Changes From Visit Lisinopril stopped Metoprolol started Admission HPI Per Admitting Provider Patient is a 65-year-old female with past medical history significant for arctic rhinitis, HTN, history of gastric bypass and osteoporosis who presented to the ED with c/o black stools and anemia. History obtained from the patient, patient's significant other at bedside, discussion with ED provider and associated chart review. Patient seen with Dr. Dominguez in the ED. Reports dark black stools for the past 5 days. No reported hematochezia. Admits to taking Excedrin Migraine around for about 3 days due to MSK pain related to underlying osteoporosis. Has a history of gastric bypass with known ulcerations seen on prior EGD done in 2019. Reports history of bleeding ulce rations however denies any prior need for blood transfusions. Was on PPI therapy in the past but not as of recently. Has been also experiencing dyspnea on exertion, lightheadedness/dizziness, nausea, heart palpitations and centralized chest pressure. No reported falls or trauma. No known significant cardiac history. Denies any urinary habit changes. No reported diarrhea. Denies any abdominal pain. Was seen by PCP for these complaints on 07/13/25 and was ordered a PPI, CBC. CBC revealed anemia with Hgb of 10.2, Hgb previously WNL as of May 2022. Was subsequently referred to ED today by PCP due to concern for upper GI bleeding. FOBT positive in ED, Hgb 9.9; started on IV Protonix bolus/drip. GI saw and evaluated the patient in the ED, planning for EGD tomorrow AM. Admission Exam Per Admitting Provider See H&P Discharge Exam Constitutional: Alert HEENT: Mucous membranes moist. Lungs: Clear to auscultation, decreased, no wheezes rales or rhonchi CV: S1-S2, regular Abdomen: Soft, nontender, nondistended Extremities: No significant edema Neuro: No focal deficits Psych: Cooperative, normal mood Updated Medication List Medication Instructions Recorded Confirmed Type citalopram 20 mg tablet 30 mg PO DAILY #0 tabs 05/24/16 07/15/25 History lisinopril 5 mg tablet 5 mg PO DAILY #0 tabs 05/24/16 07/15/25 History fluticasone propionate 50 1 spray intranasal DAILY 07/15/25 07/15/25 History mcg/actuation nasal spray,suspension metoprolol succinate 25 mg 12.5 mg (1/2 x 25 mg) PO DAILY #30 07/16/25 Rx tablet,extended release 24 hr tabs (Toprol XL) Hospital Stay Data Consultations 07/15/25 15:13 ED Decision to Admit Stat 07/15/25 21:03 Consult Gastroenterology Routine Procedures Performed Operation Date: 07/16/25 16:45 Actual Procedures p Esophagogastroduodenoscopy - Amandeep German MD Diagnostic Imagining Performed Reviewed imaging, laboratory and diagnostic studies. Pertinent findings as below. EGD: Normal mucosa, normal appearing anastomosis Echocardiogram: Normal ejection fraction, small pericardial effusion, no evidence of tamponade. Hemoglobin 10.4, improved from admission without any intervention Platelets of 287 Electrolytes within normal range Creatinine 0.77 Respiratory viral panel negative Pending Results Patient Have Any Pending Studies at Discharge: No Discharge Instructions Given to Patient (Per Discharging Provider) Discussed with your PCP referral to GI for colonoscopy Total Time Total Time Spent Total Time Spent (In Minutes): 35
[2025-07-16 16:22] VITALS: TEMP 97.7
[2025-07-16 16:23] VITALS: RESP 20; O2SAT 97
[2025-07-16 16:24] VITALS: BP 144/52
[2025-07-16 16:41] VITALS: PULSE 77
== END 2025-07-16 17:14 | disposition home or self-care (01) | DRG 378 ==
LOC: ED 11:57 → 3E 11:57 → EDINP 15:17 → SUATTDRO 15:17 → 2N 21:41